=== PATIENT | male | born 1985 | race Caucasian/White ===

== ENCOUNTER 2016-10-17 19:20 | Emergency (ER) | payer OTHER ==
[~2016-10-17] VITALS: Ht 185.4 cm; Wt 111.8 kg
[2016-10-17 19:34] VITALS: BP 138/102; PULSE 118; RESP 18; O2SAT 96
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
== END 2016-10-17 20:23 | disposition home or self-care (01) ==
LOC: SED 19:20
DX: F10.220 Alcohol dependence with intoxication, uncomplicated (principal); F43.0 Acute stress reaction; R00.0 Tachycardia, unspecified; J45.909 Unspecified asthma, uncomplicated; Z91.5 Personal history of self-harm